=== PATIENT | male | born 1935 | race Two or more races ===

== ENCOUNTER 2021-05-09 16:30 | Inpatient (IN) | payer OTHER, MEDICARE ==
[2021-05-09 18:24] LABS: INR 1.36 (0.83-1.09)
[2021-05-09 18:27] LABS: ACTIVATED PTT 31.4 SECONDS (25.2-36.5)
[2021-05-09 18:39] LABS: CALCIUM 8.2 mg/dL (8.5-10.1)
[2021-05-09 18:40] LABS: ALBUMIN 2.8 g/dl (3.4-5.0); BLOOD UREA NITROGEN 19.3 mg/dL (7-18)
[2021-05-09 18:43] LABS: CREATININE 1.1 mg/dL (0.55-1.3)
[2021-05-09 18:44] LABS: BILIRUBIN,TOTAL 0.5 mg/dL (0.2-1)
[2021-05-09 18:45] LABS: TOT PROT 6.2 g/dl (6.4-8.2)
[2021-05-09 18:48] LABS: N-TERMINAL BNP 21731.2 pg/ml (5-450)
[2021-05-09 18:56] LABS: BASO % 0.9 % (0-2.0); EOS % 0.5 % (0-4.5); HEMATOCRIT 32.2 % (35.4-49); HEMOGLOBIN 10.3 GM/dL (11.7-16.9); LYMPH % 11.7 % (8-40); MEAN CELL VOLUME 62.2 fl (80-96); MEAN PLT VOLUME 10.2 fl (7.5-11.1); MONO % 5.6 % (3.8-10.2); NEUT % 81.3 % (42.8-82.8); PLATELET COUNT 128 10^3/uL (134-434); RBC 5.18 M/mm3 (4.00-5.60)
[2021-05-09] MEDS ORDERED: FUROSEMIDE 40 MG/4 ML INJECTABLE VIAL IVPUSH SCH (19:00)
[2021-05-09 19:01] LABS: MCH 19.9 pg (25.7-33.7)
[2021-05-09 20:16] LABS: RETICULOCYTES 0.83 % (0.5-1.5)
[2021-05-09 22:48] LABS: ANISOCYTOSIS 1+; MACROCYTOSIS 0; OVALOCYTE 1+; PLATELET ESTIMATE DECREASED; TARGET CELLS 1+
[2021-05-10 04:37] LABS: EPI CELLS 1 /uL (0-25.1); HYALINE CASTS 1 /uL (0-3.1); URINE APPEARANCE CLEAR; URINE BACTERIA 11 /uL (0-1359); URINE BILIRUBIN NEGATIVE (NEGATIVE); URINE COLOR YELLOW; URINE GLUCOSE (UA) 1+ (NEGATIVE); URINE KETONE NEGATIVE (NEGATIVE); URINE LEUK ESTERASE NEGATIVE (NEGATIVE); URINE NITRITE NEGATIVE (NEGATIVE); URINE PROTEIN 2+ (NEGATIVE); URINE RBC 3 /uL (0-23.9); URINE UROBILINOGEN 0.2 mg/dL (0.2-1.0); URINE WBC 4 /uL (0-25.8)
[2021-05-10] MEDS: INSULIN SLIDING SCALE (NOVOLOG) 1 VIAL SQ SCH ×4 (07:30→22:40)
[2021-05-10] MEDS: LEVOTHYROXINE NA 25 MCG TABLET (FP) PO SCH (07:30)
[2021-05-10 07:59] LABS: HEMATOCRIT 32.8 % (35.4-49); HEMOGLOBIN 10.7 GM/dL (11.7-16.9); MCH 20.5 pg (25.7-33.7); MCHC 32.7 g/dl (32.0-35.9); MEAN CELL VOLUME 62.6 fl (80-96); MEAN PLT VOLUME 11.2 fl (7.5-11.1); PLATELET COUNT 144 10^3/uL (134-434); RBC 5.23 M/mm3 (4.00-5.60); RDW 16.8 % (11.9-15.9); WHITE BLOOD COUNT 5.7 K/mm3 (4.0-10.0)
[2021-05-10] MEDS ORDERED: FUROSEMIDE 40 MG/4 ML INJECTABLE VIAL IVPUSH SCH (08:00)
[2021-05-10 08:06] LABS: BLOOD UREA NITROGEN 20.1 mg/dL (7-18); CALCIUM 8.9 mg/dL (8.5-10.1)
[2021-05-10 08:07] LABS: MAGNESIUM 1.8 mg/dL (1.8-2.4)
[2021-05-10 08:11] LABS: BILIRUBIN,TOTAL 0.8 mg/dL (0.2-1); TOT PROT 6.4 g/dl (6.4-8.2)
[2021-05-10] MEDS ORDERED: ASPIRIN 81 MG CHEWABLE TABLETS PO SCH (10:00)
[2021-05-10] MEDS: LOSARTAN POTASSIUM 25 MG TABLET PO SCH (10:30)
[2021-05-10] MEDS: PANTOPRAZOLE 40 MG TABLET PO SCH (10:40)
[2021-05-10 10:54] LABS: PHOSPHOROUS 4.4 mg/dL (2.5-4.9)
[2021-05-10] MEDS: TAMSULOSIN HCL 0.4 MG CAP PO SCH ×2 (11:30→22:34)
[2021-05-10] MEDS ORDERED: LEVOTHYROXINE NA 25 MCG TABLET (FP) ONE (11:40)
[2021-05-10] MEDS ORDERED: TAMSULOSIN HCL 0.4 MG CAP ONE (11:40)
[2021-05-10] MEDS ORDERED: PANTOPRAZOLE 40 MG TABLET ONE (11:40)
[2021-05-10] MEDS: ENOXAPARIN NA (PORCINE) 60 MG/0.6 ML DISP.SYRIN SQ SCH ×2 (12:01→22:34)
[2021-05-10] MEDS ORDERED: ENOXAPARIN NA (PORCINE) 60 MG/0.6 ML DISP.SYRIN SQ ONE (13:52)
[2021-05-10] MEDS ORDERED: FUROSEMIDE 40 MG/4 ML INJECTABLE VIAL ONE (14:47)
[2021-05-10] MEDS: FUROSEMIDE 40 MG/4 ML INJECTABLE VIAL IVPUSH SCH (15:00)
[2021-05-10] MEDS: ATORVASTATIN CA 10 MG TABLET (FP) PO SCH (22:34)
[2021-05-11] MEDS: INSULIN SLIDING SCALE (NOVOLOG) 1 VIAL SQ SCH ×4 (06:26→22:20)
[2021-05-11] MEDS: FUROSEMIDE 40 MG/4 ML INJECTABLE VIAL IVPUSH SCH ×2 (06:26→14:06)
[2021-05-11] MEDS: LEVOTHYROXINE NA 25 MCG TABLET (FP) PO SCH (06:26)
[2021-05-11 08:22] LABS: BASO % 0.5 % (0-2.0); EOS % 0.7 % (0-4.5); HEMATOCRIT 31.4 % (35.4-49); LYMPH % 15.5 % (8-40); MCHC 31.8 g/dl (32.0-35.9); MEAN PLT VOLUME 10.4 fl (7.5-11.1); MONO % 7.8 % (3.8-10.2); NEUT % 75.5 % (42.8-82.8); PLATELET COUNT 116 10^3/uL (134-434); RBC 5.06 M/mm3 (4.00-5.60); RDW 17.1 % (11.9-15.9); WHITE BLOOD COUNT 5.5 K/mm3 (4.0-10.0)
[2021-05-11 08:23] LABS: ALBUMIN 2.6 g/dl (3.4-5.0); BLOOD UREA NITROGEN 23.3 mg/dL (7-18); CALCIUM 8.5 mg/dL (8.5-10.1); MAGNESIUM 1.6 mg/dL (1.8-2.4)
[2021-05-11 08:24] LABS: MCH 19.7 pg (25.7-33.7)
[2021-05-11 08:25] LABS: BILIRUBIN,TOTAL 0.6 mg/dL (0.2-1); TOT PROT 5.6 g/dl (6.4-8.2)
[2021-05-11 08:26] LABS: CREATININE 1.1 mg/dL (0.55-1.3)
[2021-05-11] MEDS ORDERED: MAGNESIUM SULF 50% (8.12 MEQ/2 ML-1 GM VIAL) IVPB ONE (09:03)
[2021-05-11] MEDS: LOSARTAN POTASSIUM 25 MG TABLET PO SCH (10:46)
[2021-05-11] MEDS: MULTIVITAMINS (DAILY MVI) TABLET (FP) PO SCH (10:46)
[2021-05-11] MEDS: PANTOPRAZOLE 40 MG TABLET PO SCH (10:46)
[2021-05-11] MEDS: TAMSULOSIN HCL 0.4 MG CAP PO SCH ×2 (10:47→22:13)
[2021-05-11] MEDS: ENOXAPARIN NA (PORCINE) 60 MG/0.6 ML DISP.SYRIN SQ SCH ×2 (10:47→22:14)
[2021-05-11 11:05] LABS: PLATELET ESTIMATE SLT DECREASE
[2021-05-11] MEDS ORDERED: MAGNESIUM OXIDE 400 MG TABLET (FP) PO ONE (11:10)
[2021-05-11 13:53] VITALS: BMI 17.4
[2021-05-11] MEDS: SACUBITRIL/VALSARTAN 49 MG-51 MG TABLET PO SCH ×2 (14:10→22:13)
[2021-05-11] MEDS ORDERED: PT OWN MED DRAWER 7, Y5N ONE (20:02)
[2021-05-11] MEDS: CARVEDILOL 12.5 MG TABLET (FP) PO SCH (22:13)
[2021-05-11] MEDS: ATORVASTATIN CA 10 MG TABLET (FP) PO SCH (22:15)
[2021-05-12] MEDS ORDERED: DEXTROSE 50%-WATER 25 GM/50 ML DISP.SYRIN ONE (02:54)
[2021-05-12] MEDS: DEXTROSE 50%-WATER - 25 GM/50 ML VIAL IVPUSH ONE ×2 (03:15→03:21)
[2021-05-12] MEDS: LEVOTHYROXINE NA 25 MCG TABLET (FP) PO SCH (06:23)
[2021-05-12] MEDS: FUROSEMIDE 40 MG/4 ML INJECTABLE VIAL IVPUSH SCH ×2 (06:23→13:39)
[2021-05-12 07:24] LABS: BASO % 0.4 % (0-2.0); EOS % 1.1 % (0-4.5); HEMATOCRIT 34.4 % (35.4-49); HEMOGLOBIN 11.1 GM/dL (11.7-16.9); LYMPH % 10.4 % (8-40); MCH 20.2 pg (25.7-33.7); MCHC 32.2 g/dl (32.0-35.9); MEAN CELL VOLUME 62.7 fl (80-96); MEAN PLT VOLUME 10.8 fl (7.5-11.1); MONO % 5.4 % (3.8-10.2); NEUT % 82.7 % (42.8-82.8); PLATELET COUNT 130 10^3/uL (134-434); RBC 5.49 M/mm3 (4.00-5.60); RDW 16.5 % (11.9-15.9); WHITE BLOOD COUNT 6.9 K/mm3 (4.0-10.0)
[2021-05-12] MEDS: INSULIN SLIDING SCALE (NOVOLOG) 1 VIAL SQ SCH ×4 (07:29→17:02)
[2021-05-12 08:02] LABS: CALCIUM 8.3 mg/dL (8.5-10.1)
[2021-05-12 08:03] LABS: ALBUMIN 2.5 g/dl (3.4-5.0); BLOOD UREA NITROGEN 20.4 mg/dL (7-18)
[2021-05-12 08:05] LABS: MAGNESIUM 2.1 mg/dL (1.8-2.4)
[2021-05-12 08:06] LABS: CREATININE 1.3 mg/dL (0.55-1.3)
[2021-05-12 08:07] LABS: BILIRUBIN,TOTAL 0.7 mg/dL (0.2-1); TOT PROT 5.5 g/dl (6.4-8.2)
[2021-05-12] MEDS ORDERED: PT OWN MED DRAWER 7, Y5N ONE ×2 (09:03→20:37)
[2021-05-12] MEDS: SACUBITRIL/VALSARTAN 49 MG-51 MG TABLET PO SCH ×2 (09:21→22:02)
[2021-05-12] MEDS: PANTOPRAZOLE 40 MG TABLET PO SCH (09:21)
[2021-05-12] MEDS: TAMSULOSIN HCL 0.4 MG CAP PO SCH ×2 (09:21→22:13)
[2021-05-12] MEDS: CARVEDILOL 12.5 MG TABLET (FP) PO SCH ×2 (09:21→22:04)
[2021-05-12] MEDS: MULTIVITAMINS (DAILY MVI) TABLET (FP) PO SCH (09:21)
[2021-05-12 09:37] LABS: PLATELET ESTIMATE DECREASED
[2021-05-12] MEDS: ENOXAPARIN NA (PORCINE) 60 MG/0.6 ML DISP.SYRIN SQ SCH ×2 (10:00→22:18)
[2021-05-12] MEDS: POTASSIUM CHLORIDE TABS 20 MEQ TABLET.ER (FP) PO SCH ×2 (10:34→14:44)
[2021-05-12] MEDS ORDERED: AMOX TR/POT CLAV 875MG/125MG TABLETS (FP) PO SCH (17:30)
[2021-05-12] MEDS: AMOX TR/POT CLAV 500MG/125MG TABLETS (FP) PO SCH (18:13)
[2021-05-12] MEDS: ATORVASTATIN CA 10 MG TABLET (FP) PO SCH (22:05)
[2021-05-13] MEDS: INSULIN SLIDING SCALE (NOVOLOG) 1 VIAL SQ SCH ×4 (06:25→22:00)
[2021-05-13] MEDS: LEVOTHYROXINE NA 25 MCG TABLET (FP) PO SCH (06:26)
[2021-05-13] MEDS: FUROSEMIDE 40 MG/4 ML INJECTABLE VIAL IVPUSH SCH (06:26)
[2021-05-13 07:21] LABS: BASO % 1.3 % (0-2.0); EOS % 1.9 % (0-4.5); HEMATOCRIT 34.5 % (35.4-49); LYMPH % 20.3 % (8-40); MCHC 31.8 g/dl (32.0-35.9); MEAN CELL VOLUME 62.3 fl (80-96); MEAN PLT VOLUME 10.4 fl (7.5-11.1); MONO % 6.6 % (3.8-10.2); NEUT % 69.9 % (42.8-82.8); PLATELET COUNT 107 10^3/uL (134-434); RBC 5.54 M/mm3 (4.00-5.60); RDW 16.7 % (11.9-15.9); WHITE BLOOD COUNT 6.7 K/mm3 (4.0-10.0)
[2021-05-13 07:22] LABS: MCH 19.8 pg (25.7-33.7)
[2021-05-13 08:04] LABS: ALBUMIN 2.3 g/dl (3.4-5.0); CALCIUM 8.4 mg/dL (8.5-10.1); MAGNESIUM 1.8 mg/dL (1.8-2.4)
[2021-05-13 08:07] LABS: CREATININE 1.5 mg/dL (0.55-1.3)
[2021-05-13 08:09] LABS: BILIRUBIN,TOTAL 0.7 mg/dL (0.2-1); TOT PROT 5.2 g/dl (6.4-8.2)
[2021-05-13] MEDS ORDERED: PT OWN MED DRAWER 7, Y5N ONE ×2 (08:38→13:14)
[2021-05-13] MEDS: AMOX TR/POT CLAV 500MG/125MG TABLETS (FP) PO SCH ×2 (09:30→17:34)
[2021-05-13 09:50] LABS: ANISOCYTOSIS 1+; MACROCYTOSIS 0; OVALOCYTE 1+; PLATELET ESTIMATE DECREASED; TARGET CELLS 2+; TEAR DROP CELLS 1+
[2021-05-13] MEDS: ENOXAPARIN NA (PORCINE) 60 MG/0.6 ML DISP.SYRIN SQ SCH ×2 (10:04→10:08)
[2021-05-13] MEDS: SACUBITRIL/VALSARTAN 49 MG-51 MG TABLET PO SCH ×2 (10:09→22:00)
[2021-05-13] MEDS: TAMSULOSIN HCL 0.4 MG CAP PO SCH ×2 (10:09→21:59)
[2021-05-13] MEDS: CARVEDILOL 12.5 MG TABLET (FP) PO SCH ×2 (10:10→22:00)
[2021-05-13] MEDS: PANTOPRAZOLE 40 MG TABLET PO SCH (10:10)
[2021-05-13] MEDS: MULTIVITAMINS (DAILY MVI) TABLET (FP) PO SCH (10:10)
[2021-05-13] MEDS ORDERED: FUROSEMIDE 40 MG TABLET (FP) PO SCH (14:00)
[2021-05-13] MEDS: ATORVASTATIN CA 10 MG TABLET (FP) PO SCH ×2 (22:00→22:07)
[2021-05-14] MEDS: INSULIN SLIDING SCALE (NOVOLOG) 1 VIAL SQ SCH ×4 (06:15→21:24)
[2021-05-14] MEDS: LEVOTHYROXINE NA 25 MCG TABLET (FP) PO SCH (06:16)
[2021-05-14 08:42] LABS: INR 1.19 (0.83-1.09)
[2021-05-14 08:48] LABS: CALCIUM 7.8 mg/dL (8.5-10.1); TOT PROT 5.2 g/dl (6.4-8.2)
[2021-05-14 08:49] LABS: ALBUMIN 2.2 g/dl (3.4-5.0); BILIRUBIN,TOTAL 0.8 mg/dL (0.2-1); BLOOD UREA NITROGEN 22.7 mg/dL (7-18); MAGNESIUM 1.6 mg/dL (1.8-2.4)
[2021-05-14 08:52] LABS: CREATININE 1.3 mg/dL (0.55-1.3)
[2021-05-14 08:57] LABS: MCH 20.2 pg (25.7-33.7); MCHC 32.3 g/dl (32.0-35.9); MEAN CELL VOLUME 62.7 fl (80-96); MEAN PLT VOLUME 10.8 fl (7.5-11.1); NEUT % 66.3 % (42.8-82.8); PLATELET COUNT 108 10^3/uL (134-434); RBC 5.43 M/mm3 (4.00-5.60); RDW 16.5 % (11.9-15.9); WHITE BLOOD COUNT 6.2 K/mm3 (4.0-10.0)
[2021-05-14 08:58] LABS: EOS % 2.6 % (0-4.5); LYMPH % 22.8 % (8-40); MONO % 7.3 % (3.8-10.2)
[2021-05-14] MEDS ORDERED: POTASSIUM CHLORIDE TABS 20 MEQ TABLET.ER (FP) PO ONE (08:59)
[2021-05-14] MEDS ORDERED: MAGNESIUM OXIDE 400 MG TABLET (FP) PO ONE (08:59)
[2021-05-14] MEDS ORDERED: PT OWN MED DRAWER 7, Y5N ONE ×2 (09:41→20:24)
[2021-05-14] MEDS: TAMSULOSIN HCL 0.4 MG CAP PO SCH ×2 (10:01→21:02)
[2021-05-14] MEDS: AMOX TR/POT CLAV 500MG/125MG TABLETS (FP) PO SCH ×2 (10:02→17:45)
[2021-05-14] MEDS: SACUBITRIL/VALSARTAN 49 MG-51 MG TABLET PO SCH ×2 (10:02→21:02)
[2021-05-14] MEDS: MULTIVITAMINS (DAILY MVI) TABLET (FP) PO SCH (10:02)
[2021-05-14] MEDS: CARVEDILOL 12.5 MG TABLET (FP) PO SCH ×2 (10:02→21:02)
[2021-05-14] MEDS: PANTOPRAZOLE 40 MG TABLET PO SCH (10:02)
[2021-05-14 14:42] VITALS: BP 132/68; PULSE 67; TEMP 97.6
[2021-05-14] MEDS: ATORVASTATIN CA 10 MG TABLET (FP) PO SCH (21:02)
[2021-05-14] MEDS ORDERED: INSULIN (NOVOLOG) ASPART 100 UNITS/ML 10ML VIAL ONE (21:21)
== END 2021-05-14 22:50 | disposition short-term general hospital (02) | DRG 291 ==
LOC: JER 16:30 → JERBED 19:17 → J4W 05-10 22:13
PROVIDERS: ADMIT Internal Medicine; ATTEND Nurse Practitioner Acute Care
DX: I11.0 Hypertensive heart disease with heart failure (principal); I50.21 Acute systolic (congestive) heart failure; R64 Cachexia; Z68.1 Body mass index [BMI] 19.9 or less, adult; E11.9 Type 2 diabetes mellitus without complications; I48.91 Unspecified atrial fibrillation; E78.5 Hyperlipidemia, unspecified; Z79.84 Long term (current) use of oral hypoglycemic drugs; I25.10 Atherosclerotic heart disease of native coronary artery without angina pectoris; Z95.1 Presence of aortocoronary bypass graft; E03.9 Hypothyroidism, unspecified; D64.9 Anemia, unspecified; N40.0 Benign prostatic hyperplasia without lower urinary tract symptoms
CPT/HCPCS: 36415; 71046-TC-FY; 80053; 80061; 81003; 82550; 82553; 82728; 82962; 83036; 83540; 83550; 83735; 83880; 84100; 84439; 84443; 84484; 85025; 85027; 85045; 85610; 85730; 87086; 87186; 93005; 93010; 93306-TC; 97116-GP; 97161-GP; 99285-25; C9803; U0003; U0005

== ENCOUNTER 2021-07-06 15:50 | Inpatient (IN) | payer OTHER, MEDICARE ==
[2021-07-06] MEDS ORDERED: METOCLOPRAMIDE HCL INJECTION 10 MG/2 ML VIAL IVPB ONE (17:02)
[2021-07-06] MEDS ORDERED: METOCLOPRAMIDE HCL INJECTION 10 MG/2 ML VIAL ONE (17:30)
[2021-07-06 17:51] LABS: BASO % 0.6 % (0-2.0); EOS % 0.5 % (0-4.5); HEMATOCRIT 29.6 % (35.4-49); HEMOGLOBIN 9.5 GM/dL (11.7-16.9); LYMPH % 28.2 % (8-40); MCHC 32.2 g/dl (32.0-35.9); MEAN CELL VOLUME 61.1 fl (80-96); MEAN PLT VOLUME 9.5 fl (7.5-11.1); MONO % 4.7 % (3.8-10.2); PLATELET COUNT 148 10^3/uL (134-434); RBC 4.86 M/mm3 (4.00-5.60); RDW 16.6 % (11.9-15.9); WHITE BLOOD COUNT 4.3 K/mm3 (4.0-10.0)
[2021-07-06 17:53] LABS: MCH 19.6 pg (25.7-33.7)
[2021-07-06 17:57] LABS: INR 1.36 (0.83-1.09); PROTHROMBIN TIME (PATIENT) 15.3 SEC (9.7-13.0)
[2021-07-06 18:00] LABS: ACTIVATED PTT 32.3 SECONDS (25.2-36.5)
[2021-07-06 18:06] LABS: CHLORIDE 104 mmol/L (98-107); SODIUM 141 mmol/L (136-145)
[2021-07-06 18:08] LABS: CALCIUM 8.6 mg/dL (8.5-10.1)
[2021-07-06 18:09] LABS: ALBUMIN 2.7 g/dl (3.4-5.0); ANION GAP 7 MMOL/L (8-16); BLOOD UREA NITROGEN 10.9 mg/dL (7-18); CO2 31 mmol/L (21-32); GLUCOSE,RANDOM 140 mg/dL (74-106)
[2021-07-06 18:12] LABS: CHOLESTEROL 133 mg/dL (50-200); CREATININE 1.1 mg/dL (0.55-1.3); SGOT/AST 39 U/L (15-37); SGPT/ALT 41 U/L (13-61); TRIGLYCERIDES 78 mg/dL (0-150)
[2021-07-06 18:13] LABS: BILIRUBIN,TOTAL 0.7 mg/dL (0.2-1); LDL CHOLESTEROL (ONLY SJRH) 55 mg/dL (5-100); TOT PROT 6.2 g/dl (6.4-8.2)
[2021-07-06 18:14] LABS: ALK PHOS 86 U/L (45-117); HDL CHOLESTEROL 63 mg/dL (40-60)
[2021-07-06 18:49] LABS: ANISOCYTOSIS 3+; MACROCYTOSIS 0; PLATELET ESTIMATE NORMAL
[2021-07-06] MEDS ORDERED: ASPIRIN 81 MG CHEWABLE TABLETS PO ONE (20:34)
[2021-07-06] MEDS ORDERED: ASPIRIN 325 MG ENTERIC COATED TABLET (FP) ONE (20:47)
[2021-07-06] MEDS ORDERED: MECLIZINE HCL 12.5 MG TABLET PO PRN (21:32)
[2021-07-07] MEDS ORDERED: APIXABAN 2.5 MG TABLET ONE ×3 (02:11→21:25)
[2021-07-07] MEDS: INSULIN SLIDING SCALE (NOVOLOG) 1 VIAL SQ SCH ×5 (03:10→22:37)
[2021-07-07] MEDS: SACUBITRIL/VALSARTAN 49 MG-51 MG TABLET PO SCH ×3 (03:11→22:37)
[2021-07-07] MEDS: APIXABAN 2.5 MG TABLET PO SCH ×3 (03:11→22:37)
[2021-07-07 07:48] LABS: BASO % 0.7 % (0-2.0); EOS % 0.6 % (0-4.5); HEMATOCRIT 30.1 % (35.4-49); HEMOGLOBIN 9.8 GM/dL (11.7-16.9); LYMPH % 34.2 % (8-40); MCHC 32.6 g/dl (32.0-35.9); MEAN CELL VOLUME 60.9 fl (80-96); MEAN PLT VOLUME 9.6 fl (7.5-11.1); MONO % 6.6 % (3.8-10.2); NEUT % 57.9 % (42.8-82.8); PLATELET COUNT 139 10^3/uL (134-434); RBC 4.94 M/mm3 (4.00-5.60); RDW 16.7 % (11.9-15.9); WHITE BLOOD COUNT 4.5 K/mm3 (4.0-10.0)
[2021-07-07 07:52] LABS: MCH 19.8 pg (25.7-33.7)
[2021-07-07 08:09] LABS: CHLORIDE 102 mmol/L (98-107); SODIUM 141 mmol/L (136-145)
[2021-07-07 08:16] LABS: CALCIUM 8.6 mg/dL (8.5-10.1); CO2 33 mmol/L (21-32)
[2021-07-07 08:17] LABS: BLOOD UREA NITROGEN 10.4 mg/dL (7-18); SGPT/ALT 40 U/L (13-61)
[2021-07-07 08:18] LABS: ALBUMIN 2.7 g/dl (3.4-5.0); GLUCOSE,RANDOM 104 mg/dL (74-106); SGOT/AST 37 U/L (15-37)
[2021-07-07 08:19] LABS: TOT PROT 5.8 g/dl (6.4-8.2)
[2021-07-07 08:21] LABS: CHOLESTEROL 141 mg/dL (50-200); PHOSPHOROUS 3.3 mg/dL (2.5-4.9); TRIGLYCERIDES 79 mg/dL (0-150)
[2021-07-07 08:22] LABS: BILIRUBIN,TOTAL 0.9 mg/dL (0.2-1); LDL CHOLESTEROL (ONLY SJRH) 61 mg/dL (5-100)
[2021-07-07 08:23] LABS: HDL CHOLESTEROL 60 mg/dL (40-60)
[2021-07-07 08:25] LABS: ALK PHOS 83 U/L (45-117)
[2021-07-07 08:31] LABS: MAGNESIUM 2.2 mg/dL (1.8-2.4)
[2021-07-07 08:38] LABS: ANION GAP 6 MMOL/L (8-16)
[2021-07-07 09:21] LABS: PLATELET ESTIMATE DECREASED
[2021-07-07] MEDS ORDERED: PANTOPRAZOLE 40 MG TABLET ONE (10:11)
[2021-07-07] MEDS ORDERED: FUROSEMIDE 40 MG TABLET (FP) ONE (10:11)
[2021-07-07] MEDS ORDERED: LEVOTHYROXINE NA 25 MCG TABLET (FP) ONE (10:12)
[2021-07-07] MEDS: CARVEDILOL 6.25 MG TABLET (FP) PO SCH ×2 (10:45→22:37)
[2021-07-07] MEDS: FUROSEMIDE 40 MG TABLET (FP) PO SCH (10:45)
[2021-07-07] MEDS: LEVOTHYROXINE NA 25 MCG TABLET (FP) PO SCH (10:45)
[2021-07-07] MEDS: PANTOPRAZOLE 40 MG TABLET PO SCH (10:45)
[2021-07-07] MEDS ORDERED: POTASSIUM CHLORIDE TABS 20 MEQ TABLET.ER (FP) PO ONE ×4 (11:14→22:00)
[2021-07-07 20:44] LABS: URINE APPEARANCE CLEAR; URINE BILIRUBIN NEGATIVE (NEGATIVE); URINE COLOR YELLOW; URINE GLUCOSE (UA) NEGATIVE (NEGATIVE); URINE KETONE NEGATIVE (NEGATIVE); URINE LEUK ESTERASE NEGATIVE (NEGATIVE); URINE NITRITE NEGATIVE (NEGATIVE); URINE PROTEIN NEGATIVE (NEGATIVE); URINE UROBILINOGEN 0.2 mg/dL (0.2-1.0)
[2021-07-07] MEDS ORDERED: CARVEDILOL 3.125 MG TABLET (FP) ONE (21:25)
[2021-07-07] MEDS ORDERED: TAMSULOSIN HCL 0.4 MG CAP ONE (21:26)
[2021-07-07] MEDS ORDERED: ATORVASTATIN CA 40 MG TABLET (FP) ONE (21:26)
[2021-07-07] MEDS ORDERED: ATORVASTATIN CA 80 MG TABLET (FP) PO SCH (22:00)
[2021-07-07] MEDS ORDERED: ATORVASTATIN CA 40 MG TABLET (FP) PO SCH (22:00)
[2021-07-07] MEDS ORDERED: ATORVASTATIN CA 10 MG TABLET (FP) PO SCH (22:00)
[2021-07-07] MEDS: TAMSULOSIN HCL 0.4 MG CAP PO SCH (22:37)
[2021-07-08 01:05] VITALS: BMI 15.0
[2021-07-08] MEDS: INSULIN SLIDING SCALE (NOVOLOG) 1 VIAL SQ SCH ×2 (07:10→11:59)
[2021-07-08] MEDS: LEVOTHYROXINE NA 25 MCG TABLET (FP) PO SCH (07:13)
[2021-07-08] MEDS ORDERED: MULTIVITAMINS (DAILY MVI) TABLET (FP) PO SCH (10:00)
[2021-07-08] MEDS ORDERED: ASPIRIN 81 MG CHEWABLE TABLETS PO SCH (10:00)
[2021-07-08] MEDS: FUROSEMIDE 40 MG TABLET (FP) PO SCH (10:10)
[2021-07-08] MEDS: APIXABAN 2.5 MG TABLET PO SCH (10:10)
[2021-07-08] MEDS: CARVEDILOL 6.25 MG TABLET (FP) PO SCH (10:10)
[2021-07-08] MEDS: PANTOPRAZOLE 40 MG TABLET PO SCH (10:10)
[2021-07-08] MEDS: TAMSULOSIN HCL 0.4 MG CAP PO SCH (10:10)
[2021-07-08] MEDS: SACUBITRIL/VALSARTAN 49 MG-51 MG TABLET PO SCH (10:11)
[2021-07-08 15:00] VITALS: BP 138/58; PULSE 55; TEMP 97.5
== END 2021-07-08 17:13 | disposition home or self-care (01) | DRG 65 ==
LOC: JER 15:50 → INTOOBSV 20:35 → UNDOADMOB 20:35 → JERBED 20:35 → OBSVTOIN 07-07 16:44 → J4S 07-07 23:55
PROVIDERS: ATTEND Nurse Practitioner Acute Care
DX: I63.9 Cerebral infarction, unspecified (principal); I50.22 Chronic systolic (congestive) heart failure; I11.0 Hypertensive heart disease with heart failure; E78.5 Hyperlipidemia, unspecified; E11.9 Type 2 diabetes mellitus without complications; I25.10 Atherosclerotic heart disease of native coronary artery without angina pectoris; E03.9 Hypothyroidism, unspecified; N40.0 Benign prostatic hyperplasia without lower urinary tract symptoms; I48.91 Unspecified atrial fibrillation; E11.42 Type 2 diabetes mellitus with diabetic polyneuropathy; I34.0 Nonrheumatic mitral (valve) insufficiency; E87.6 Hypokalemia; H55.00 Unspecified nystagmus; R27.0 Ataxia, unspecified; D50.9 Iron deficiency anemia, unspecified; Z95.1 Presence of aortocoronary bypass graft
CPT/HCPCS: 36415; 70450-TC; 70551-TC; 71045-TC-FY; 80053; 80061; 81003; 82272; 82550; 82728; 82962; 83036; 83540; 83550; 83735; 84100; 84484; 85025; 85610; 85730; 86850; 86900; 86901; 93005; 93010; 93880-TC; 97116-GP; 97161-GP; 99285-25; C9803; G0378; U0003; U0005

== ENCOUNTER 2021-08-26 15:11 | Inpatient (IN) | payer OTHER, MEDICARE ==
[2021-08-26 16:59] LABS: BASO % 0.6 % (0-2.0); HEMATOCRIT 27.2 % (35.4-49); HEMOGLOBIN 8.7 GM/dL (11.7-16.9); LYMPH % 29.3 % (8-40); MCH 20.2 pg (25.7-33.7); MCHC 31.9 g/dl (32.0-35.9); MEAN CELL VOLUME 63.4 fl (80-96); MEAN PLT VOLUME 10.2 fl (7.5-11.1); MONO % 5.9 % (3.8-10.2); NEUT % 63.2 % (42.8-82.8); PLATELET COUNT 161 10^3/uL (134-434); RDW 16.7 % (11.9-15.9); WHITE BLOOD COUNT 4.4 K/mm3 (4.0-10.0)
[2021-08-26 17:15] LABS: INR 1.49 (0.83-1.09); PROTHROMBIN TIME (PATIENT) 17.2 SEC (9.7-13.0)
[2021-08-26 17:17] LABS: ACTIVATED PTT 33.9 SECONDS (25.2-36.5)
[2021-08-26] MEDS ORDERED: SODIUM CHLORIDE 0.9% 500 ML INFUS.BAG IV ONE (17:27)
[2021-08-26 17:32] LABS: BLOOD UREA NITROGEN 11.9 mg/dL (7-18)
[2021-08-26 17:33] LABS: ALBUMIN 2.6 g/dl (3.4-5.0)
[2021-08-26 17:36] LABS: CREATININE 1.3 mg/dL (0.55-1.3)
[2021-08-26 17:37] LABS: BILIRUBIN,TOTAL 0.6 mg/dL (0.2-1); TOT PROT 5.9 g/dl (6.4-8.2)
[2021-08-26 18:18] LABS: MAGNESIUM 1.5 mg/dL (1.8-2.4)
[2021-08-26 18:22] LABS: PHOSPHOROUS 3.8 mg/dL (2.5-4.9)
[2021-08-26 18:27] LABS: N-TERMINAL BNP 4835.5 pg/ml (5-450)
[2021-08-26 19:22] LABS: ANISOCYTOSIS 2+; MACROCYTOSIS 2+; OVALOCYTE 1+; PLATELET ESTIMATE DECREASED; TEAR DROP CELLS 1+
[2021-08-26] MEDS ORDERED: MAGNESIUM OXIDE 400 MG TABLET (FP) PO ONE (19:48)
[2021-08-26] MEDS ORDERED: MAGNESIUM OXIDE 400 MG TABLET (FP) ONE (20:39)
[2021-08-26] MEDS: SODIUM CHLORIDE 1,000 ML IV SCH (20:50)
[2021-08-26] MEDS ORDERED: INSULIN (NOVOLOG) ASPART 100 UNITS/ML 10ML VIAL SQ ONE (20:50)
[2021-08-26 21:36] LABS: RETICULOCYTES 0.75 % (0.5-1.5)
[2021-08-26] MEDS ORDERED: SOTROVIMAB 500 MG in SODIUM CHLORIDE 100 ML IVPB ONE (22:00)
[2021-08-26] MEDS ORDERED: ATORVASTATIN CA 40 MG TABLET (FP) ONE (22:39)
[2021-08-26] MEDS ORDERED: TAMSULOSIN HCL 0.4 MG CAP ONE (22:39)
[2021-08-26] MEDS ORDERED: APIXABAN 2.5 MG TABLET ONE (22:39)
[2021-08-26] MEDS: INSULIN SLIDING SCALE (NOVOLOG) 1 VIAL SQ SCH (22:48)
[2021-08-26] MEDS: APIXABAN 2.5 MG TABLET PO SCH (22:48)
[2021-08-26] MEDS: SACUBITRIL/VALSARTAN 49 MG-51 MG TABLET PO SCH (22:48)
[2021-08-26] MEDS: ATORVASTATIN CA 40 MG TABLET (FP) PO SCH (22:48)
[2021-08-26] MEDS: TAMSULOSIN HCL 0.4 MG CAP PO SCH (22:48)
[2021-08-27 01:28] LABS: EPI CELLS 9 /uL (0-25.1); HYALINE CASTS 7 /uL (0-3.1); PH,URINE 6.5 (5.0-8.0); URINE APPEARANCE CLEAR; URINE BACTERIA 2 /uL (0-1359); URINE BILIRUBIN NEGATIVE (NEGATIVE); URINE COLOR YELLOW; URINE GLUCOSE (UA) NEGATIVE (NEGATIVE); URINE KETONE NEGATIVE (NEGATIVE); URINE LEUK ESTERASE NEGATIVE (NEGATIVE); URINE NITRITE NEGATIVE (NEGATIVE); URINE PROTEIN 1+ (NEGATIVE); URINE RBC 21 /uL (0-23.9); URINE UROBILINOGEN 0.2 mg/dL (0.2-1.0); URINE WBC 5 /uL (0-25.8)
[2021-08-27] MEDS: INSULIN SLIDING SCALE (NOVOLOG) 1 VIAL SQ SCH ×4 (06:49→22:07)
[2021-08-27] MEDS: LEVOTHYROXINE NA 50 MCG TABLET (FP) PO SCH (06:49)
[2021-08-27 07:03] LABS: HEMATOCRIT 23.8 % (35.4-49); HEMOGLOBIN 7.5 GM/dL (11.7-16.9); MCH 20.1 pg (25.7-33.7); MCHC 31.5 g/dl (32.0-35.9); MEAN CELL VOLUME 63.7 fl (80-96); MEAN PLT VOLUME 10.4 fl (7.5-11.1); PLATELET COUNT 131 10^3/uL (134-434); RBC 3.73 M/mm3 (4.00-5.60); RDW 16.6 % (11.9-15.9); WHITE BLOOD COUNT 4.3 K/mm3 (4.0-10.0)
[2021-08-27 07:17] LABS: BLOOD UREA NITROGEN 10.9 mg/dL (7-18); CALCIUM 7.3 mg/dL (8.5-10.1)
[2021-08-27 07:18] LABS: ALBUMIN 2.2 g/dl (3.4-5.0); MAGNESIUM 1.4 mg/dL (1.8-2.4)
[2021-08-27 07:21] LABS: PHOSPHOROUS 3.3 mg/dL (2.5-4.9)
[2021-08-27 07:22] LABS: BILIRUBIN,TOTAL 0.8 mg/dL (0.2-1); TOT PROT 4.9 g/dl (6.4-8.2)
[2021-08-27] MEDS ORDERED: POTASSIUM CHLORIDE TABS 20 MEQ TABLET.ER (FP) PO ONE (08:51)
[2021-08-27] MEDS: SODIUM CHLORIDE 1,000 ML IV SCH (09:00)
[2021-08-27] MEDS: CARVEDILOL 6.25 MG TABLET (FP) PO SCH ×2 (09:05→22:06)
[2021-08-27] MEDS: PANTOPRAZOLE 40 MG TABLET PO SCH (09:05)
[2021-08-27] MEDS: APIXABAN 2.5 MG TABLET PO SCH ×2 (09:05→22:06)
[2021-08-27] MEDS: ASPIRIN 81 MG CHEWABLE TABLETS PO SCH (09:05)
[2021-08-27] MEDS: TAMSULOSIN HCL 0.4 MG CAP PO SCH ×2 (09:05→22:06)
[2021-08-27] MEDS: SACUBITRIL/VALSARTAN 49 MG-51 MG TABLET PO SCH ×2 (11:11→22:06)
[2021-08-27] MEDS ORDERED: MAGNESIUM SULF 50% (8.12 MEQ/2 ML-1 GM VIAL) IVPB ONE (15:14)
[2021-08-27] MEDS ORDERED: ONDANSETRON 4 MG/2 ML VIAL IVPUSH ONE (20:58)
[2021-08-27] MEDS: ATORVASTATIN CA 40 MG TABLET (FP) PO SCH (22:06)
[2021-08-28] MEDS ORDERED: TRIMETHOBENZAMIDE HCL 200MG/2ML INJ IM PRN (03:00)
[2021-08-28] MEDS: LEVOTHYROXINE NA 50 MCG TABLET (FP) PO SCH (06:08)
[2021-08-28] MEDS: INSULIN SLIDING SCALE (NOVOLOG) 1 VIAL SQ SCH ×4 (07:02→22:13)
[2021-08-28 07:22] LABS: BASO % 0.4 % (0-2.0); EOS % 0.6 % (0-4.5); HEMOGLOBIN 8.7 GM/dL (11.7-16.9); LYMPH % 23.1 % (8-40); MCH 20.3 pg (25.7-33.7); MEAN CELL VOLUME 63.3 fl (80-96); MEAN PLT VOLUME 10.9 fl (7.5-11.1); MONO % 5.6 % (3.8-10.2); NEUT % 70.3 % (42.8-82.8); PLATELET COUNT 169 10^3/uL (134-434); RBC 4.27 M/mm3 (4.00-5.60); RDW 16.3 % (11.9-15.9); WHITE BLOOD COUNT 4.2 K/mm3 (4.0-10.0)
[2021-08-28 07:32] LABS: ALBUMIN 2.3 g/dl (3.4-5.0); CALCIUM 7.5 mg/dL (8.5-10.1); MAGNESIUM 1.7 mg/dL (1.8-2.4)
[2021-08-28 07:36] LABS: CREATININE 1.1 mg/dL (0.55-1.3)
[2021-08-28 07:37] LABS: BILIRUBIN,TOTAL 0.6 mg/dL (0.2-1); TOT PROT 5.2 g/dl (6.4-8.2)
[2021-08-28] MEDS: SACUBITRIL/VALSARTAN 49 MG-51 MG TABLET PO SCH ×2 (09:26→22:15)
[2021-08-28] MEDS: TAMSULOSIN HCL 0.4 MG CAP PO SCH ×2 (09:26→22:15)
[2021-08-28] MEDS: ASPIRIN 81 MG CHEWABLE TABLETS PO SCH (09:26)
[2021-08-28] MEDS: CARVEDILOL 6.25 MG TABLET (FP) PO SCH ×2 (09:27→22:14)
[2021-08-28] MEDS: APIXABAN 2.5 MG TABLET PO SCH ×2 (09:27→22:14)
[2021-08-28] MEDS: PANTOPRAZOLE 40 MG TABLET PO SCH (09:27)
[2021-08-28] MEDS: amLODIPine BESYLATE 5 MG TABLET (FP) PO SCH (09:27)
[2021-08-28 12:56] VITALS: BMI 18.7
[2021-08-28] MEDS: AMINO ACIDS/PROTEIN HYDROLYS 30 ML LIQUID.PKT PO SCH (17:55)
[2021-08-28] MEDS: ATORVASTATIN CA 40 MG TABLET (FP) PO SCH (22:14)
[2021-08-28] MEDS: MAGNESIUM OXIDE 400 MG TABLET (FP) PO SCH (22:14)
[2021-08-29] MEDS: INSULIN SLIDING SCALE (NOVOLOG) 1 VIAL SQ SCH ×4 (06:27→21:49)
[2021-08-29] MEDS: LEVOTHYROXINE NA 50 MCG TABLET (FP) PO SCH (06:28)
[2021-08-29 07:25] LABS: EOS % 0.9 % (0-4.5); HEMATOCRIT 31.1 % (35.4-49); HEMOGLOBIN 9.7 GM/dL (11.7-16.9); LYMPH % 21.5 % (8-40); MCHC 31.1 g/dl (32.0-35.9); MEAN CELL VOLUME 63.7 fl (80-96); MEAN PLT VOLUME 10.1 fl (7.5-11.1); MONO % 2.8 % (3.8-10.2); NEUT % 73.8 % (42.8-82.8); PLATELET COUNT 164 10^3/uL (134-434); RBC 4.88 M/mm3 (4.00-5.60); RDW 16.4 % (11.9-15.9); WHITE BLOOD COUNT 5.2 K/mm3 (4.0-10.0)
[2021-08-29 07:31] LABS: MCH 19.8 pg (25.7-33.7)
[2021-08-29 07:50] LABS: ALBUMIN 2.6 g/dl (3.4-5.0); BLOOD UREA NITROGEN 14.4 mg/dL (7-18); CALCIUM 8.5 mg/dL (8.5-10.1); MAGNESIUM 1.6 mg/dL (1.8-2.4)
[2021-08-29 07:55] LABS: BILIRUBIN,TOTAL 0.6 mg/dL (0.2-1); TOT PROT 5.7 g/dl (6.4-8.2)
[2021-08-29] MEDS ORDERED: LORazepam 2 MG/ML SDV VIAL IVPUSH PRN (10:51)
[2021-08-29] MEDS: AMINO ACIDS/PROTEIN HYDROLYS 30 ML LIQUID.PKT PO SCH ×2 (11:21→17:37)
[2021-08-29] MEDS: APIXABAN 2.5 MG TABLET PO SCH ×2 (11:22→21:25)
[2021-08-29] MEDS: MAGNESIUM OXIDE 400 MG TABLET (FP) PO SCH ×2 (11:22→21:25)
[2021-08-29] MEDS: SACUBITRIL/VALSARTAN 49 MG-51 MG TABLET PO SCH (11:22)
[2021-08-29] MEDS: MULTIVITAMINS THER W-MINERALS COMBO TABLET (FP) PO SCH (11:22)
[2021-08-29] MEDS: CARVEDILOL 6.25 MG TABLET (FP) PO SCH ×2 (11:22→21:25)
[2021-08-29] MEDS: ASPIRIN 81 MG CHEWABLE TABLETS PO SCH (11:22)
[2021-08-29] MEDS: amLODIPine BESYLATE 5 MG TABLET (FP) PO SCH (11:22)
[2021-08-29] MEDS: PANTOPRAZOLE 40 MG TABLET PO SCH (11:22)
[2021-08-29] MEDS: TAMSULOSIN HCL 0.4 MG CAP PO SCH ×2 (11:22→21:26)
[2021-08-29] MEDS ORDERED: MINERAL OIL ENEMA 133 ML ENEMA RC ONE (14:00)
[2021-08-29] MEDS ORDERED: amLODIPine BESYLATE 5 MG TABLET (FP) PO ONE (15:00)
[2021-08-29] MEDS ORDERED: BISACODYL 10 MG SUPP.RECT PR ONE (15:00)
[2021-08-29] MEDS: DOCUSATE SODIUM 100 MG CAPSULE (FP) PO SCH ×2 (15:40→21:25)
[2021-08-29] MEDS: ATORVASTATIN CA 40 MG TABLET (FP) PO SCH (21:26)
[2021-08-30] MEDS: LEVOTHYROXINE NA 50 MCG TABLET (FP) PO SCH (06:34)
[2021-08-30] MEDS: DOCUSATE SODIUM 100 MG CAPSULE (FP) PO SCH ×2 (06:36→13:04)
[2021-08-30] MEDS: INSULIN SLIDING SCALE (NOVOLOG) 1 VIAL SQ SCH ×2 (06:36→11:52)
[2021-08-30] MEDS: AMINO ACIDS/PROTEIN HYDROLYS 30 ML LIQUID.PKT PO SCH (08:45)
[2021-08-30] MEDS: MAGNESIUM OXIDE 400 MG TABLET (FP) PO SCH (09:00)
[2021-08-30] MEDS: PANTOPRAZOLE 40 MG TABLET PO SCH (09:00)
[2021-08-30] MEDS: TAMSULOSIN HCL 0.4 MG CAP PO SCH (09:00)
[2021-08-30] MEDS: ASPIRIN 81 MG CHEWABLE TABLETS PO SCH (09:00)
[2021-08-30] MEDS: CARVEDILOL 6.25 MG TABLET (FP) PO SCH (09:00)
[2021-08-30] MEDS: APIXABAN 2.5 MG TABLET PO SCH (09:00)
[2021-08-30] MEDS: SACUBITRIL/VALSARTAN 49 MG-51 MG TABLET PO SCH (09:00)
[2021-08-30] MEDS: MULTIVITAMINS THER W-MINERALS COMBO TABLET (FP) PO SCH (09:00)
[2021-08-30] MEDS ORDERED: amLODIPine BESYLATE 10 MG TABLET (FP) PO SCH (10:00)
[2021-08-30 16:40] VITALS: BP 94/80; PULSE 55; TEMP 98.6
== END 2021-08-30 16:57 | disposition home or self-care (01) | DRG 178 ==
LOC: JER 15:11 → INTOOBSV 15:57 → JERBED 15:57 → OBSVTOIN 19:40 → J2W 08-27 02:17
PROVIDERS: ADMIT Hospitalist; ATTEND Nurse Practitioner Acute Care
PROC: XW033H6 Introduction of Other New Technology Monoclonal Antibody into Peripheral Vein, Percutaneous Approach, New Technology Group 6 (ICD-10-PCS; principal; 2021-08-26)
DX: U07.1 COVID-19 (principal); Z68.1 Body mass index [BMI] 19.9 or less, adult; I31.3 Pericardial effusion (noninflammatory); I50.22 Chronic systolic (congestive) heart failure; E03.9 Hypothyroidism, unspecified; I11.0 Hypertensive heart disease with heart failure; I25.10 Atherosclerotic heart disease of native coronary artery without angina pectoris; I10 Essential (primary) hypertension; E78.5 Hyperlipidemia, unspecified; I48.0 Paroxysmal atrial fibrillation; E11.9 Type 2 diabetes mellitus without complications; Z95.1 Presence of aortocoronary bypass graft; N40.0 Benign prostatic hyperplasia without lower urinary tract symptoms; D50.9 Iron deficiency anemia, unspecified; I08.0 Rheumatic disorders of both mitral and aortic valves; D64.9 Anemia, unspecified; R11.2 Nausea with vomiting, unspecified; R63.4 Abnormal weight loss; R62.7 Adult failure to thrive; E87.8 Other disorders of electrolyte and fluid balance, not elsewhere classified; D56.3 Thalassemia minor; Z86.73 Personal history of transient ischemic attack (TIA), and cerebral infarction without residual deficits
CPT/HCPCS: 36415; 71045-TC-FY; 74021-TC-FY; 80053; 81003; 82272; 82728; 82962; 83036; 83540; 83550; 83735; 83880; 84100; 84439; 84443; 84481; 84484; 85025; 85027; 85045; 85610; 85730; 86140; 86850; 86900; 86901; 87086; 87804; 93005; 93010; 93306-TC; 97116-GP; 97161-GP; 99285-25; C9803; G0378; M0247; Q0247; U0003; U0005

== ENCOUNTER 2021-09-09 14:37 | Inpatient (IN) | payer OTHER, MEDICARE ==
[2021-09-09 14:53] VITALS: BMI 17.6
[2021-09-09] MEDS ORDERED: SODIUM CHLORIDE 1,000 ML IV STA (15:12)
[2021-09-09 15:38] LABS: BASO % 0.4 % (0-2.0); HEMATOCRIT 20.9 % (35.4-49); LYMPH % 4.9 % (8-40); MCHC 31.2 g/dl (32.0-35.9); MONO % 4.8 % (3.8-10.2); NEUT % 89.9 % (42.8-82.8); PLATELET COUNT 315 10^3/uL (134-434); RBC 3.37 M/mm3 (4.00-5.60); RDW 14.8 % (11.9-15.9); WHITE BLOOD COUNT 12.7 K/mm3 (4.0-10.0)
[2021-09-09 15:42] LABS: MCH 19.3 pg (25.7-33.7)
[2021-09-09 15:44] LABS: HEMOGLOBIN 6.5 GM/dL (11.7-16.9)
[2021-09-09 16:01] LABS: ACTIVATED PTT 30.8 SECONDS (25.2-36.5); INR 2.01 (0.83-1.09); PROTHROMBIN TIME (PATIENT) 23.3 SEC (9.7-13.0)
[2021-09-09 16:03] LABS: CALCIUM 7.8 mg/dL (8.5-10.1)
[2021-09-09 16:04] LABS: BLOOD UREA NITROGEN 25.6 mg/dL (7-18); MAGNESIUM 1.6 mg/dL (1.8-2.4)
[2021-09-09 16:07] LABS: CREATININE 1.2 mg/dL (0.55-1.3); PHOSPHOROUS 2.9 mg/dL (2.5-4.9)
[2021-09-09 16:09] LABS: BILIRUBIN,TOTAL 0.6 mg/dL (0.2-1); TOT PROT 5.3 g/dl (6.4-8.2)
[2021-09-09 16:12] LABS: N-TERMINAL BNP 5767.7 pg/ml (5-450)
[2021-09-09 16:28] LABS: ALBUMIN 1.8 g/dl (3.4-5.0)
[2021-09-09] MEDS ORDERED: MAGNESIUM SULF 50% (8.12 MEQ/2 ML-1 GM VIAL) IVPB ONE (17:59)
[2021-09-09] MEDS ORDERED: MAGNESIUM 1GM/D5W - 1 GM/100 ML IVPB IVPB ONE (18:03)
[2021-09-09] MEDS ORDERED: METOCLOPRAMIDE HCL INJECTION 10 MG/2 ML VIAL IVPUSH ONE (18:29)
[2021-09-09] MEDS ORDERED: FUROSEMIDE 40 MG/4 ML INJECTABLE VIAL IVPUSH ONE (22:00)
[2021-09-09] MEDS: INSULIN SLIDING SCALE (NOVOLOG) 1 VIAL SQ SCH (22:22)
[2021-09-09] MEDS: ATORVASTATIN CA 40 MG TABLET (FP) PO SCH (22:23)
[2021-09-09] MEDS: CARVEDILOL 6.25 MG TABLET (FP) PO SCH (22:23)
[2021-09-09] MEDS: TAMSULOSIN HCL 0.4 MG CAP PO SCH (22:23)
[2021-09-09] MEDS: SACUBITRIL/VALSARTAN 49 MG-51 MG TABLET PO SCH (22:23)
[2021-09-10 01:44] LABS: PH,URINE 6.5 (5.0-8.0); URINE APPEARANCE CLEAR; URINE BILIRUBIN NEGATIVE (NEGATIVE); URINE COLOR YELLOW; URINE GLUCOSE (UA) NEGATIVE (NEGATIVE); URINE KETONE NEGATIVE (NEGATIVE); URINE LEUK ESTERASE NEGATIVE (NEGATIVE); URINE NITRITE NEGATIVE (NEGATIVE); URINE PROTEIN NEGATIVE (NEGATIVE); URINE UROBILINOGEN 0.2 mg/dL (0.2-1.0)
[2021-09-10] MEDS: INSULIN SLIDING SCALE (NOVOLOG) 1 VIAL SQ SCH ×4 (06:36→22:04)
[2021-09-10] MEDS: LEVOTHYROXINE NA 50 MCG TABLET (FP) PO SCH (06:36)
[2021-09-10] MEDS ORDERED: amLODIPine BESYLATE 10 MG TABLET (FP) PO SCH (10:00)
[2021-09-10] MEDS: TAMSULOSIN HCL 0.4 MG CAP PO SCH ×2 (10:42→22:03)
[2021-09-10] MEDS: AMINO ACIDS/PROTEIN HYDROLYS 30 ML LIQUID.PKT PO SCH ×2 (10:42→18:18)
[2021-09-10] MEDS: PANTOPRAZOLE 40 MG TABLET PO SCH (10:42)
[2021-09-10] MEDS: SACUBITRIL/VALSARTAN 49 MG-51 MG TABLET PO SCH ×2 (10:43→22:52)
[2021-09-10 10:48] LABS: HEMATOCRIT 25.5 % (35.4-49); HEMOGLOBIN 8.3 GM/dL (11.7-16.9); MCH 21.1 pg (25.7-33.7); MCHC 32.3 g/dl (32.0-35.9); MEAN CELL VOLUME 65.3 fl (80-96); MEAN PLT VOLUME 9.4 fl (7.5-11.1); PLATELET COUNT 317 10^3/uL (134-434); RBC 3.91 M/mm3 (4.00-5.60); RDW 17.4 % (11.9-15.9)
[2021-09-10 11:06] LABS: CALCIUM 8.2 mg/dL (8.5-10.1)
[2021-09-10 11:07] LABS: BLOOD UREA NITROGEN 23.1 mg/dL (7-18); MAGNESIUM 1.9 mg/dL (1.8-2.4)
[2021-09-10 11:10] LABS: PHOSPHOROUS 3.1 mg/dL (2.5-4.9)
[2021-09-10] MEDS: CARVEDILOL 6.25 MG TABLET (FP) PO SCH ×2 (12:11→22:03)
[2021-09-10] MEDS: MULTIVITAMINS (DAILY MVI) TABLET (FP) PO SCH (12:43)
[2021-09-10] MEDS: ATORVASTATIN CA 40 MG TABLET (FP) PO SCH (22:03)
[2021-09-11] MEDS: INSULIN SLIDING SCALE (NOVOLOG) 1 VIAL SQ SCH ×4 (05:59→22:07)
[2021-09-11] MEDS: LEVOTHYROXINE NA 50 MCG TABLET (FP) PO SCH (06:00)
[2021-09-11] MEDS: AMINO ACIDS/PROTEIN HYDROLYS 30 ML LIQUID.PKT PO SCH ×2 (08:04→16:44)
[2021-09-11 10:21] LABS: BASO % 0.3 % (0-2.0); EOS % 0.5 % (0-4.5); HEMATOCRIT 24.4 % (35.4-49); HEMOGLOBIN 7.9 GM/dL (11.7-16.9); MCH 21.1 pg (25.7-33.7); MCHC 32.4 g/dl (32.0-35.9); MEAN CELL VOLUME 65.1 fl (80-96); MEAN PLT VOLUME 8.6 fl (7.5-11.1); MONO % 7.3 % (3.8-10.2); NEUT % 82.9 % (42.8-82.8); PLATELET COUNT 325 10^3/uL (134-434); RBC 3.74 M/mm3 (4.00-5.60); RDW 16.7 % (11.9-15.9); WHITE BLOOD COUNT 8.2 K/mm3 (4.0-10.0)
[2021-09-11] MEDS: PANTOPRAZOLE 40 MG TABLET PO SCH (10:31)
[2021-09-11] MEDS: CARVEDILOL 6.25 MG TABLET (FP) PO SCH ×2 (10:31→22:12)
[2021-09-11] MEDS: TAMSULOSIN HCL 0.4 MG CAP PO SCH ×2 (10:31→22:07)
[2021-09-11] MEDS: MULTIVITAMINS (DAILY MVI) TABLET (FP) PO SCH (10:32)
[2021-09-11] MEDS: SACUBITRIL/VALSARTAN 49 MG-51 MG TABLET PO SCH ×2 (10:32→22:08)
[2021-09-11] MEDS: amLODIPine BESYLATE 10 MG TABLET (FP) PO SCH (10:34)
[2021-09-11 10:40] LABS: ALBUMIN 1.6 g/dl (3.4-5.0); BLOOD UREA NITROGEN 26.8 mg/dL (7-18); CALCIUM 7.7 mg/dL (8.5-10.1); MAGNESIUM 1.9 mg/dL (1.8-2.4)
[2021-09-11 10:43] LABS: CREATININE 1.1 mg/dL (0.55-1.3)
[2021-09-11 10:45] LABS: BILIRUBIN,TOTAL 0.7 mg/dL (0.2-1)
[2021-09-11] MEDS ORDERED: IRON SUCROSE INJECTION 100 MG in SODIUM CHLORIDE 95 ML IVPB ONE (11:48)
[2021-09-11] MEDS: ATORVASTATIN CA 40 MG TABLET (FP) PO SCH (22:07)
[2021-09-11] MEDS: APIXABAN 2.5 MG TABLET PO SCH (22:07)
[2021-09-12] MEDS: LEVOTHYROXINE NA 50 MCG TABLET (FP) PO SCH (06:50)
[2021-09-12] MEDS: INSULIN SLIDING SCALE (NOVOLOG) 1 VIAL SQ SCH ×4 (06:50→22:22)
[2021-09-12] MEDS: SACUBITRIL/VALSARTAN 49 MG-51 MG TABLET PO SCH ×2 (09:41→22:10)
[2021-09-12] MEDS: TAMSULOSIN HCL 0.4 MG CAP PO SCH ×2 (09:41→22:10)
[2021-09-12] MEDS: CARVEDILOL 6.25 MG TABLET (FP) PO SCH ×2 (09:41→22:11)
[2021-09-12] MEDS: APIXABAN 2.5 MG TABLET PO SCH ×2 (09:41→22:11)
[2021-09-12] MEDS: amLODIPine BESYLATE 10 MG TABLET (FP) PO SCH (09:41)
[2021-09-12] MEDS: PANTOPRAZOLE 40 MG TABLET PO SCH (09:41)
[2021-09-12] MEDS: MULTIVITAMINS (DAILY MVI) TABLET (FP) PO SCH (09:41)
[2021-09-12] MEDS: AMINO ACIDS/PROTEIN HYDROLYS 30 ML LIQUID.PKT PO SCH ×3 (09:42→16:54)
[2021-09-12 09:47] LABS: BASO % 0.9 % (0-2.0); EOS % 0.9 % (0-4.5); HEMATOCRIT 24.4 % (35.4-49); LYMPH % 13.4 % (8-40); MCH 21.2 pg (25.7-33.7); MCHC 32.8 g/dl (32.0-35.9); MEAN CELL VOLUME 64.8 fl (80-96); MEAN PLT VOLUME 8.9 fl (7.5-11.1); MONO % 8.5 % (3.8-10.2); NEUT % 76.3 % (42.8-82.8); PLATELET COUNT 323 10^3/uL (134-434); RBC 3.76 M/mm3 (4.00-5.60); RDW 16.6 % (11.9-15.9); WHITE BLOOD COUNT 7.1 K/mm3 (4.0-10.0)
[2021-09-12] MEDS ORDERED: IRON SUCROSE INJECTION 100 MG in SODIUM CHLORIDE 95 ML IVPB ONE (10:00)
[2021-09-12 10:05] LABS: CALCIUM 7.7 mg/dL (8.5-10.1)
[2021-09-12 10:06] LABS: ALBUMIN 1.6 g/dl (3.4-5.0); BLOOD UREA NITROGEN 29.9 mg/dL (7-18); MAGNESIUM 1.8 mg/dL (1.8-2.4)
[2021-09-12 10:09] LABS: CREATININE 1.1 mg/dL (0.55-1.3)
[2021-09-12 10:11] LABS: BILIRUBIN,TOTAL 0.5 mg/dL (0.2-1); TOT PROT 4.8 g/dl (6.4-8.2)
[2021-09-12] MEDS: ATORVASTATIN CA 40 MG TABLET (FP) PO SCH (22:11)
[2021-09-13] MEDS: LEVOTHYROXINE NA 50 MCG TABLET (FP) PO SCH (06:22)
[2021-09-13] MEDS: INSULIN SLIDING SCALE (NOVOLOG) 1 VIAL SQ SCH ×4 (06:22→22:03)
[2021-09-13] MEDS: TAMSULOSIN HCL 0.4 MG CAP PO SCH ×2 (10:06→22:02)
[2021-09-13] MEDS: MULTIVITAMINS (DAILY MVI) TABLET (FP) PO SCH (10:06)
[2021-09-13] MEDS: CARVEDILOL 6.25 MG TABLET (FP) PO SCH ×2 (10:06→22:02)
[2021-09-13] MEDS: PANTOPRAZOLE 40 MG TABLET PO SCH (10:07)
[2021-09-13] MEDS: amLODIPine BESYLATE 10 MG TABLET (FP) PO SCH (10:07)
[2021-09-13] MEDS: AMINO ACIDS/PROTEIN HYDROLYS 30 ML LIQUID.PKT PO SCH ×2 (10:07→17:43)
[2021-09-13] MEDS: SACUBITRIL/VALSARTAN 49 MG-51 MG TABLET PO SCH ×2 (10:07→22:02)
[2021-09-13] MEDS: APIXABAN 2.5 MG TABLET PO SCH ×2 (10:39→22:02)
[2021-09-13 11:23] LABS: BASO % 0.6 % (0-2.0); EOS % 0.5 % (0-4.5); HEMATOCRIT 27.2 % (35.4-49); HEMOGLOBIN 8.7 GM/dL (11.7-16.9); LYMPH % 10.8 % (8-40); MCH 20.9 pg (25.7-33.7); MEAN CELL VOLUME 65.4 fl (80-96); MEAN PLT VOLUME 8.8 fl (7.5-11.1); MONO % 6.1 % (3.8-10.2); PLATELET COUNT 379 10^3/uL (134-434); RBC 4.16 M/mm3 (4.00-5.60); RDW 16.7 % (11.9-15.9); WHITE BLOOD COUNT 6.5 K/mm3 (4.0-10.0)
[2021-09-13 11:45] LABS: ALBUMIN 1.8 g/dl (3.4-5.0); BLOOD UREA NITROGEN 27.7 mg/dL (7-18); CALCIUM 7.9 mg/dL (8.5-10.1)
[2021-09-13] MEDS: MAG HYDROX/AL HYDROX/SIMETH 30 ML UNIT-DOSE CUP PO PRN ×2 (11:45→17:45)
[2021-09-13 11:50] LABS: BILIRUBIN,TOTAL 0.5 mg/dL (0.2-1); TOT PROT 5.3 g/dl (6.4-8.2)
[2021-09-13 12:09] LABS: ANISOCYTOSIS 2+; MACROCYTOSIS 0; ROULEAU 1+
[2021-09-13] MEDS ORDERED: HEPARIN NA (PORCINE) 5,000 UNITS/ML 1ML VIAL IVPUSH PRN ×2 (16:05)
[2021-09-13] MEDS ORDERED: HEPARIN SOD,PORK IN 0.45% NACL 25,000 UNIT/500 ML INFUS.BAG IVPB SCH (16:15)
[2021-09-13] MEDS: ATORVASTATIN CA 40 MG TABLET (FP) PO SCH (22:02)
[2021-09-14] MEDS: LEVOTHYROXINE NA 50 MCG TABLET (FP) PO SCH (06:37)
[2021-09-14] MEDS: INSULIN SLIDING SCALE (NOVOLOG) 1 VIAL SQ SCH ×3 (06:37→17:31)
[2021-09-14 08:50] LABS: BASO % 0.7 % (0-2.0); EOS % 0.1 % (0-4.5); HEMATOCRIT 27.3 % (35.4-49); HEMOGLOBIN 8.8 GM/dL (11.7-16.9); LYMPH % 9.6 % (8-40); MCHC 32.3 g/dl (32.0-35.9); MEAN CELL VOLUME 64.9 fl (80-96); MEAN PLT VOLUME 8.8 fl (7.5-11.1); MONO % 5.8 % (3.8-10.2); NEUT % 83.8 % (42.8-82.8); PLATELET COUNT 390 10^3/uL (134-434); RDW 15.9 % (11.9-15.9); WHITE BLOOD COUNT 9.2 K/mm3 (4.0-10.0)
[2021-09-14 09:14] LABS: ALBUMIN 1.8 g/dl (3.4-5.0); BLOOD UREA NITROGEN 29.5 mg/dL (7-18); CALCIUM 8.1 mg/dL (8.5-10.1); MAGNESIUM 1.8 mg/dL (1.8-2.4)
[2021-09-14 09:18] LABS: BILIRUBIN,TOTAL 0.5 mg/dL (0.2-1)
[2021-09-14 09:22] LABS: TOT PROT 5.3 g/dl (6.4-8.2)
[2021-09-14] MEDS ORDERED: PANTOPRAZOLE 40 MG TABLET PO SCH (10:00)
[2021-09-14] MEDS: AMINO ACIDS/PROTEIN HYDROLYS 30 ML LIQUID.PKT PO SCH ×2 (10:29→17:57)
[2021-09-14] MEDS: CARVEDILOL 6.25 MG TABLET (FP) PO SCH (10:33)
[2021-09-14] MEDS: APIXABAN 2.5 MG TABLET PO SCH (10:34)
[2021-09-14] MEDS: amLODIPine BESYLATE 10 MG TABLET (FP) PO SCH (10:37)
[2021-09-14] MEDS: SACUBITRIL/VALSARTAN 49 MG-51 MG TABLET PO SCH (12:15)
[2021-09-14] MEDS: TAMSULOSIN HCL 0.4 MG CAP PO SCH (12:15)
[2021-09-14] MEDS: MULTIVITAMINS (DAILY MVI) TABLET (FP) PO SCH (12:18)
[2021-09-14] MEDS: MEGESTROL ACETATE 40 MG TABLET PO SCH (16:32)
[2021-09-14] MEDS ORDERED: ACETAMINOPHEN 1000 MG/100 ML BAG IVPB PRN (16:37)
[2021-09-15] MEDS: ATORVASTATIN CA 40 MG TABLET (FP) PO SCH ×2 (00:33→21:29)
[2021-09-15] MEDS: APIXABAN 2.5 MG TABLET PO SCH ×2 (00:33→10:06)
[2021-09-15] MEDS: CARVEDILOL 6.25 MG TABLET (FP) PO SCH ×3 (00:33→21:25)
[2021-09-15] MEDS: TAMSULOSIN HCL 0.4 MG CAP PO SCH ×3 (00:33→21:29)
[2021-09-15] MEDS: INSULIN SLIDING SCALE (NOVOLOG) 1 VIAL SQ SCH ×5 (00:33→21:33)
[2021-09-15] MEDS: SACUBITRIL/VALSARTAN 49 MG-51 MG TABLET PO SCH ×3 (02:02→21:25)
[2021-09-15] MEDS: LEVOTHYROXINE NA 50 MCG TABLET (FP) PO SCH (06:58)
[2021-09-15 09:02] LABS: HEMOGLOBIN 8.5 GM/dL (11.7-16.9); MCH 20.8 pg (25.7-33.7); MCHC 31.7 g/dl (32.0-35.9); MEAN CELL VOLUME 65.5 fl (80-96); MEAN PLT VOLUME 9.3 fl (7.5-11.1); PLATELET COUNT 377 10^3/uL (134-434); RBC 4.12 M/mm3 (4.00-5.60); RDW 15.9 % (11.9-15.9); WHITE BLOOD COUNT 13.2 K/mm3 (4.0-10.0)
[2021-09-15 09:24] LABS: ALBUMIN 1.8 g/dl (3.4-5.0); BLOOD UREA NITROGEN 41.9 mg/dL (7-18); CREATININE 1.3 mg/dL (0.55-1.3)
[2021-09-15 09:25] LABS: CALCIUM 8.2 mg/dL (8.5-10.1); MAGNESIUM 1.9 mg/dL (1.8-2.4)
[2021-09-15 09:26] LABS: BILIRUBIN,TOTAL 0.9 mg/dL (0.2-1); TOT PROT 5.2 g/dl (6.4-8.2)
[2021-09-15] MEDS ORDERED: PANTOPRAZOLE 20 MG TABLET PO SCH (10:00)
[2021-09-15] MEDS: MULTIVITAMINS (DAILY MVI) TABLET (FP) PO SCH (10:06)
[2021-09-15] MEDS: AMINO ACIDS/PROTEIN HYDROLYS 30 ML LIQUID.PKT PO SCH ×2 (10:06→17:37)
[2021-09-15] MEDS: MEGESTROL ACETATE 40 MG TABLET PO SCH (10:07)
[2021-09-15] MEDS: amLODIPine BESYLATE 10 MG TABLET (FP) PO SCH (10:07)
[2021-09-15] MEDS ORDERED: AMINO ACIDS 4.25%/D5W 1,000 ML IV SCH (10:15)
[2021-09-15 11:10] LABS: ANISOCYTOSIS 1+; MACROCYTOSIS 0
[2021-09-15 11:58] LABS: INR 2.35 (0.83-1.09); PROTHROMBIN TIME (PATIENT) 27.3 SEC (9.7-13.0)
[2021-09-15] MEDS ORDERED: FUROSEMIDE 40 MG/4 ML INJECTABLE VIAL IVPUSH ONE (16:00)
[2021-09-15] MEDS: ALBUMIN HUMAN 25% 12.5 GM/50 ML VIAL IV SCH ×2 (17:16→17:55)
[2021-09-15] MEDS: ENOXAPARIN NA (PORCINE) 30 MG/0.3 ML DISP.SYRIN SQ SCH (21:35)
[2021-09-15] MEDS ORDERED: METOPROLOL TARTRATE 5 MG/5 ML VIAL IVPUSH PRN (21:59)
[2021-09-16] MEDS: LEVOTHYROXINE NA 50 MCG TABLET (FP) PO SCH (06:05)
[2021-09-16] MEDS: INSULIN SLIDING SCALE (NOVOLOG) 1 VIAL SQ SCH ×4 (06:08→21:20)
[2021-09-16] MEDS: AMINO ACIDS/PROTEIN HYDROLYS 30 ML LIQUID.PKT PO SCH ×2 (08:31→16:30)
[2021-09-16 09:25] LABS: HEMATOCRIT 21.9 % (35.4-49); MCHC 32.1 g/dl (32.0-35.9); MEAN CELL VOLUME 65.2 fl (80-96); MEAN PLT VOLUME 8.8 fl (7.5-11.1); PLATELET COUNT 332 10^3/uL (134-434); RBC 3.36 M/mm3 (4.00-5.60); RDW 16.6 % (11.9-15.9); WHITE BLOOD COUNT 14.4 K/mm3 (4.0-10.0)
[2021-09-16 09:49] LABS: CALCIUM 8.3 mg/dL (8.5-10.1)
[2021-09-16 09:50] LABS: ALBUMIN 2.1 g/dl (3.4-5.0); BLOOD UREA NITROGEN 62.1 mg/dL (7-18); MAGNESIUM 1.9 mg/dL (1.8-2.4)
[2021-09-16 09:53] LABS: CREATININE 1.7 mg/dL (0.55-1.3)
[2021-09-16 09:54] LABS: BILIRUBIN,TOTAL 0.7 mg/dL (0.2-1); TOT PROT 5.2 g/dl (6.4-8.2)
[2021-09-16] MEDS: CARVEDILOL 6.25 MG TABLET (FP) PO SCH (10:08)
[2021-09-16] MEDS: MEGESTROL ACETATE 40 MG TABLET PO SCH (10:09)
[2021-09-16] MEDS: amLODIPine BESYLATE 10 MG TABLET (FP) PO SCH (10:09)
[2021-09-16] MEDS: MULTIVITAMINS (DAILY MVI) TABLET (FP) PO SCH (10:09)
[2021-09-16] MEDS: SACUBITRIL/VALSARTAN 49 MG-51 MG TABLET PO SCH (10:09)
[2021-09-16] MEDS: TAMSULOSIN HCL 0.4 MG CAP PO SCH (10:09)
[2021-09-16] MEDS ORDERED: METOPROLOL TARTRATE 5 MG/5 ML VIAL IVPB PRN (10:35)
[2021-09-16 10:57] LABS: ANISOCYTOSIS 1+; MACROCYTOSIS 0; OVALOCYTE 1+; PLATELET ESTIMATE NORMAL; TARGET CELLS 2+; TEAR DROP CELLS 1+
[2021-09-16] MEDS ORDERED: cefTRIAXone SODIUM 1 GM VIAL ONE (11:36)
[2021-09-16] MEDS ORDERED: DEXTROSE 5%-WATER - 50 ML IVPB ONE (11:37)
[2021-09-16] MEDS: CEFTRIAXONE 1 GM in DEXTROSE 5%-WATER - 50 ML IVPB SCH (11:40)
[2021-09-16] MEDS: PANTOPRAZOLE SODIUM 40 MG VIAL IVPUSH SCH (11:41)
[2021-09-16] MEDS: ENOXAPARIN NA (PORCINE) 30 MG/0.3 ML DISP.SYRIN SQ SCH ×2 (11:41→21:19)
[2021-09-16 12:46] LABS: INR 1.81 (0.83-1.09); PROTHROMBIN TIME (PATIENT) 20.9 SEC (9.7-13.0)
[2021-09-16] MEDS ORDERED: AMINO ACIDS 4.25%/D5W 1,000 ML IV SCH (14:00)
[2021-09-16] MEDS: AMINO ACIDS 4.25%/D5W 1,000 ML IV SCH (16:29)
[2021-09-16] MEDS ORDERED: ACETAMINOPHEN 1000 MG/100 ML BAG IVPB PRN (20:06)
[2021-09-16] MEDS ORDERED: FAT EMULSION/OLIVE/SOY (CLINOLIPID) 250 ML EMULSION IV SCH (22:00)
[2021-09-17] MEDS ORDERED: FAT EMULSION/OLIVE/SOY (CLINOLIPID) 500 ML EMULSION IV SCH (00:36)
[2021-09-17] MEDS: FAT EMULSION/OLIVE/SOY (CLINOLIPID) 500 ML EMULSION IV SCH ×2 (01:51→22:11)
[2021-09-17] MEDS: AMINO ACIDS 4.25%/D5W 1,000 ML IV SCH ×2 (01:52→16:01)
[2021-09-17] MEDS: INSULIN SLIDING SCALE (NOVOLOG) 1 VIAL SQ SCH ×4 (06:15→22:33)
[2021-09-17] MEDS: LEVOTHYROXINE NA 50 MCG TABLET (FP) PO SCH (06:16)
[2021-09-17] MEDS: AMINO ACIDS/PROTEIN HYDROLYS 30 ML LIQUID.PKT PO SCH (07:39)
[2021-09-17] MEDS ORDERED: DEXTROSE 5%-WATER - 50 ML IVPB ONE (08:40)
[2021-09-17] MEDS ORDERED: cefTRIAXone SODIUM 1 GM VIAL ONE (08:40)
[2021-09-17] MEDS: ENOXAPARIN NA (PORCINE) 30 MG/0.3 ML DISP.SYRIN SQ SCH ×2 (09:29→22:11)
[2021-09-17] MEDS: CEFTRIAXONE 1 GM in DEXTROSE 5%-WATER - 50 ML IVPB SCH (09:29)
[2021-09-17] MEDS: PANTOPRAZOLE SODIUM 40 MG VIAL IVPUSH SCH (09:29)
[2021-09-17] MEDS: MULTIVITAMINS (DAILY MVI) TABLET (FP) PO SCH (09:30)
[2021-09-17 10:02] LABS: BASO % 0.1 % (0-2.0); HEMATOCRIT 27.1 % (35.4-49); HEMOGLOBIN 9.2 GM/dL (11.7-16.9); LYMPH % 2.5 % (8-40); MCH 23.1 pg (25.7-33.7); MCHC 33.9 g/dl (32.0-35.9); MEAN CELL VOLUME 68.2 fl (80-96); MEAN PLT VOLUME 8.8 fl (7.5-11.1); MONO % 2.6 % (3.8-10.2); NEUT % 94.8 % (42.8-82.8); PLATELET COUNT 296 10^3/uL (134-434); RBC 3.96 M/mm3 (4.00-5.60); RDW 25.7 % (11.9-15.9); WHITE BLOOD COUNT 15.3 K/mm3 (4.0-10.0)
[2021-09-17 10:03] LABS: INR 1.8 (0.83-1.09); PROTHROMBIN TIME (PATIENT) 20.8 SEC (9.7-13.0)
[2021-09-17 10:23] LABS: ALBUMIN 1.7 g/dl (3.4-5.0); BLOOD UREA NITROGEN 71.2 mg/dL (7-18); CALCIUM 8.1 mg/dL (8.5-10.1); MAGNESIUM 1.9 mg/dL (1.8-2.4)
[2021-09-17 10:25] LABS: CREATININE 1.7 mg/dL (0.55-1.3)
[2021-09-17 10:28] LABS: BILIRUBIN,TOTAL 0.8 mg/dL (0.2-1); TOT PROT 4.9 g/dl (6.4-8.2)
[2021-09-17 11:30] LABS: ANISOCYTOSIS 1+; MACROCYTOSIS 0; OVALOCYTE 1+; PLATELET ESTIMATE NORMAL; TARGET CELLS 2+; TEAR DROP CELLS 1+
[2021-09-17] MEDS ORDERED: AMINO ACIDS 4.25%/D5W 1,000 ML IV SCH ×2 (15:40→15:52)
[2021-09-18] MEDS: INSULIN SLIDING SCALE (NOVOLOG) 1 VIAL SQ SCH ×4 (06:21→22:14)
[2021-09-18 08:38] LABS: HEMATOCRIT 29.7 % (35.4-49); HEMOGLOBIN 9.9 GM/dL (11.7-16.9); MCH 23.1 pg (25.7-33.7); MCHC 33.4 g/dl (32.0-35.9); PLATELET COUNT 305 10^3/uL (134-434); RBC 4.31 M/mm3 (4.00-5.60); RDW 25.5 % (11.9-15.9)
[2021-09-18 09:06] LABS: ALBUMIN 1.7 g/dl (3.4-5.0); BLOOD UREA NITROGEN 69.8 mg/dL (7-18); CALCIUM 7.8 mg/dL (8.5-10.1); MAGNESIUM 1.9 mg/dL (1.8-2.4)
[2021-09-18 09:09] LABS: CREATININE 1.3 mg/dL (0.55-1.3); PHOSPHOROUS 2.8 mg/dL (2.5-4.9)
[2021-09-18 09:10] LABS: BILIRUBIN,TOTAL 0.6 mg/dL (0.2-1); TOT PROT 4.9 g/dl (6.4-8.2)
[2021-09-18 09:52] LABS: INR 1.38 (0.83-1.09); PROTHROMBIN TIME (PATIENT) 15.9 SEC (9.7-13.0)
[2021-09-18] MEDS ORDERED: cefTRIAXone SODIUM 1 GM VIAL ONE (10:05)
[2021-09-18] MEDS ORDERED: DEXTROSE 5%-WATER - 50 ML IVPB ONE (10:05)
[2021-09-18 10:21] LABS: ANISOCYTOSIS 1+; MACROCYTOSIS 0
[2021-09-18] MEDS: FUROSEMIDE 40 MG/4 ML INJECTABLE VIAL IVPUSH SCH (10:24)
[2021-09-18] MEDS: PANTOPRAZOLE SODIUM 40 MG VIAL IVPUSH SCH (10:26)
[2021-09-18] MEDS: LEVOTHYROXINE SODIUM 100 MCG VIAL IVPUSH SCH (10:28)
[2021-09-18] MEDS: MULTIVITAMINS (DAILY MVI) TABLET (FP) PO SCH (10:29)
[2021-09-18] MEDS: CEFTRIAXONE 1 GM in DEXTROSE 5%-WATER - 50 ML IVPB SCH (10:30)
[2021-09-18] MEDS ORDERED: POTASSIUM CHLORIDE 20 MEQ in AMINO ACIDS 4.25%/D5W 1,000 ML IV SCH ×2 (10:30→18:00)
[2021-09-18] MEDS ORDERED: [UNRECOGNIZED DRUG - OTHER] IV SCH (15:16)
[2021-09-18] MEDS ORDERED: POTASSIUM CHLORIDE IV SCH (15:16)
[2021-09-18] MEDS ORDERED: MULTIVIT IV SCH (15:16)
[2021-09-18] MEDS ORDERED: MULTIVIT INJ. ADULT COMBO WITH VIT K 1 COMBO 10 ML VIAL IV SCH (18:00)
[2021-09-18] MEDS: FAT EMULSION/OLIVE/SOY/PHOSPHO 250 ML IV SCH (22:02)
[2021-09-19] MEDS: INSULIN SLIDING SCALE (NOVOLOG) 1 VIAL SQ SCH ×4 (06:05→21:19)
[2021-09-19] MEDS ORDERED: cefTRIAXone SODIUM 1 GM VIAL ONE (09:32)
[2021-09-19] MEDS ORDERED: DEXTROSE 5%-WATER - 50 ML IVPB ONE (09:32)
[2021-09-19] MEDS: PANTOPRAZOLE SODIUM 40 MG VIAL IVPUSH SCH (09:55)
[2021-09-19] MEDS: FUROSEMIDE 40 MG/4 ML INJECTABLE VIAL IVPUSH SCH (09:57)
[2021-09-19] MEDS: LEVOTHYROXINE SODIUM 100 MCG VIAL IVPUSH SCH (10:00)
[2021-09-19] MEDS ORDERED: MULTIVIT INJ. ADULT COMBO WITH VIT K 1 COMBO 10 ML VIAL IV SCH ×2 (10:00)
[2021-09-19] MEDS: CEFTRIAXONE 1 GM in DEXTROSE 5%-WATER - 50 ML IVPB SCH (10:07)
[2021-09-19] MEDS ORDERED: INSULIN SLIDING SCALE (NOVOLOG) 1 VIAL SQ ONE (11:13)
[2021-09-19 11:18] LABS: HEMATOCRIT 28.5 % (35.4-49); HEMOGLOBIN 9.1 GM/dL (11.7-16.9); MCH 22.1 pg (25.7-33.7); MCHC 31.9 g/dl (32.0-35.9); MEAN CELL VOLUME 69.2 fl (80-96); MEAN PLT VOLUME 9.6 fl (7.5-11.1); PLATELET COUNT 309 10^3/uL (134-434); RBC 4.12 M/mm3 (4.00-5.60); RDW 25.9 % (11.9-15.9)
[2021-09-19 11:25] LABS: INR 1.32 (0.83-1.09); PROTHROMBIN TIME (PATIENT) 15.2 SEC (9.7-13.0)
[2021-09-19 11:29] LABS: CALCIUM 7.8 mg/dL (8.5-10.1)
[2021-09-19 11:30] LABS: ALBUMIN 1.6 g/dl (3.4-5.0); BLOOD UREA NITROGEN 69.2 mg/dL (7-18)
[2021-09-19 11:33] LABS: CREATININE 1.3 mg/dL (0.55-1.3)
[2021-09-19 11:34] LABS: BILIRUBIN,TOTAL 0.6 mg/dL (0.2-1); TOT PROT 5.3 g/dl (6.4-8.2)
[2021-09-19 12:31] LABS: ANISOCYTOSIS 1+; MACROCYTOSIS 1+; OVALOCYTE 0; PLATELET ESTIMATE NORMAL
[2021-09-19] MEDS: KCL 10 MEQ IVPB 10 MEQ/100 ML INFUS.BAG IVPB SCH ×2 (13:04→16:28)
[2021-09-19] MEDS: SPIRONOLACTONE 25 MG TABLET PO ONE ×2 (15:03→17:15)
[2021-09-19] MEDS: POTASSIUM CHLORIDE 40 MEQ in AMINO ACIDS 4.25%/D5W 1,000 ML IV SCH (16:28)
[2021-09-19] MEDS: MULTIVIT INJ. ADULT COMBO WITH VIT K 1 COMBO 10 ML VIAL IV SCH (16:28)
[2021-09-19 17:18] LABS: BF WBC & OTHER NUCLEATED CELLS 4862 /mm3
[2021-09-19 18:49] LABS: BODY FLUID MONOCYTE 6 %
[2021-09-19] MEDS: FAT EMULSION/OLIVE/SOY/PHOSPHO 250 ML IV SCH (22:39)
[2021-09-20] MEDS: INSULIN SLIDING SCALE (NOVOLOG) 1 VIAL SQ SCH ×4 (06:02→21:55)
[2021-09-20 10:23] LABS: BASO % 0.3 % (0-2.0); EOS % 0.5 % (0-4.5); HEMATOCRIT 30.7 % (35.4-49); LYMPH % 5.3 % (8-40); MCH 22.4 pg (25.7-33.7); MCHC 32.4 g/dl (32.0-35.9); MEAN PLT VOLUME 9.6 fl (7.5-11.1); MONO % 5.4 % (3.8-10.2); NEUT % 88.5 % (42.8-82.8); PLATELET COUNT 321 10^3/uL (134-434); RBC 4.45 M/mm3 (4.00-5.60); RDW 26.6 % (11.9-15.9); WHITE BLOOD COUNT 10.4 K/mm3 (4.0-10.0)
[2021-09-20 10:28] LABS: INR 1.24 (0.83-1.09); PROTHROMBIN TIME (PATIENT) 14.3 SEC (9.7-13.0)
[2021-09-20] MEDS: CEFTRIAXONE 1 GM in DEXTROSE 5%-WATER - 50 ML IVPB SCH (10:45)
[2021-09-20 10:48] LABS: ALBUMIN 1.7 g/dl (3.4-5.0); BLOOD UREA NITROGEN 57.3 mg/dL (7-18); CALCIUM 7.9 mg/dL (8.5-10.1)
[2021-09-20 10:52] LABS: CREATININE 1.1 mg/dL (0.55-1.3)
[2021-09-20 10:53] LABS: BILIRUBIN,TOTAL 0.7 mg/dL (0.2-1); TOT PROT 5.4 g/dl (6.4-8.2)
[2021-09-20] MEDS ORDERED: cefTRIAXone SODIUM 1 GM VIAL ONE (11:35)
[2021-09-20] MEDS ORDERED: DEXTROSE 5%-WATER - 50 ML IVPB ONE (11:35)
[2021-09-20] MEDS: PANTOPRAZOLE SODIUM 40 MG VIAL IVPUSH SCH (11:46)
[2021-09-20] MEDS ORDERED: EPINEPHrine 1:10,000 (P-F SYR) 1 MG/10 ML DISP.SYRIN ONE (11:46)
[2021-09-20] MEDS: LEVOTHYROXINE SODIUM 100 MCG VIAL IVPUSH SCH (11:46)
[2021-09-20] MEDS: FUROSEMIDE 40 MG/4 ML INJECTABLE VIAL IVPUSH SCH (11:47)
[2021-09-20] MEDS: AMINO ACIDS/PROTEIN HYDROLYS 30 ML LIQUID.PKT PO SCH (16:35)
[2021-09-20] MEDS: POTASSIUM CHLORIDE 40 MEQ in AMINO ACIDS 4.25%/D5W 1,000 ML IV SCH (21:46)
[2021-09-20] MEDS: MULTIVIT INJ. ADULT COMBO WITH VIT K 1 COMBO 10 ML VIAL IV SCH (21:46)
[2021-09-20] MEDS: FAT EMULSION/OLIVE/SOY/PHOSPHO 250 ML IV SCH (21:47)
[2021-09-20] MEDS: ATORVASTATIN CA 40 MG TABLET (FP) PO SCH ×2 (21:47→23:48)
[2021-09-20] MEDS: CARVEDILOL 6.25 MG TABLET (FP) PO SCH ×2 (21:47→23:46)
[2021-09-20] MEDS: TAMSULOSIN HCL 0.4 MG CAP PO SCH ×2 (21:47→23:47)
[2021-09-20] MEDS: SACUBITRIL/VALSARTAN 49 MG-51 MG TABLET PO SCH ×2 (21:48→23:47)
[2021-09-21 05:29] VITALS: BP 123/72; PULSE 88; TEMP 98.1
[2021-09-21 11:07] LABS: SARS-CoV-2 NAA Not Detected (Not Detected)
[2021-09-21 18:07] LABS: BODY FLUID ALBUMIN 1.4 g/dL (Not Estab.)
[2021-09-28 11:10] LABS: Hgb F 0; Hgb S 0
== END 2021-09-21 05:39 | disposition short-term general hospital (02) | DRG 177 ==
LOC: JER 14:37 → JERBED 16:24 → J5S 20:04
PROVIDERS: ADMIT Internal Medicine; ATTEND Nurse Practitioner Family
PROC: 30233N1 Transfusion of Nonautologous Red Blood Cells into Peripheral Vein, Percutaneous Approach (ICD-10-PCS; 2021-09-09)
PROC: 0D9670Z Drainage of Stomach with Drainage Device, Via Natural or Artificial Opening (ICD-10-PCS; principal; 2021-09-15)
PROC: 0W9G3ZX Drainage of Peritoneal Cavity, Percutaneous Approach, Diagnostic (ICD-10-PCS; 2021-09-19)
PROC: 0DB98ZX Excision of Duodenum, Via Natural or Artificial Opening Endoscopic, Diagnostic (ICD-10-PCS; 2021-09-20)
PROC: 0DB68ZX Excision of Stomach, Via Natural or Artificial Opening Endoscopic, Diagnostic (ICD-10-PCS; 2021-09-20)
DX: U07.1 COVID-19 (principal); E43 Unspecified severe protein-calorie malnutrition; Z68.1 Body mass index [BMI] 19.9 or less, adult; R18.8 Other ascites; J90 Pleural effusion, not elsewhere classified; N17.9 Acute kidney failure, unspecified; I50.22 Chronic systolic (congestive) heart failure; K31.1 Adult hypertrophic pyloric stenosis; C25.9 Malignant neoplasm of pancreas, unspecified; E03.9 Hypothyroidism, unspecified; I11.0 Hypertensive heart disease with heart failure; I25.10 Atherosclerotic heart disease of native coronary artery without angina pectoris; I10 Essential (primary) hypertension; E78.5 Hyperlipidemia, unspecified; R60.9 Edema, unspecified; R62.7 Adult failure to thrive; D50.9 Iron deficiency anemia, unspecified; K31.89 Other diseases of stomach and duodenum; I34.0 Nonrheumatic mitral (valve) insufficiency; K76.9 Liver disease, unspecified; R10.9 Unspecified abdominal pain; E87.6 Hypokalemia; D56.9 Thalassemia, unspecified; R53.1 Weakness; E87.70 Fluid overload, unspecified; N40.0 Benign prostatic hyperplasia without lower urinary tract symptoms; E83.42 Hypomagnesemia; E11.9 Type 2 diabetes mellitus without complications; I48.0 Paroxysmal atrial fibrillation; Z95.1 Presence of aortocoronary bypass graft; Z95.5 Presence of coronary angioplasty implant and graft; Z86.73 Personal history of transient ischemic attack (TIA), and cerebral infarction without residual deficits
CPT/HCPCS: 36415; 36430; 71045-TC-FY; 74176-TC; 76700-TC; 76942-TC; 80048; 80053; 81003; 82042; 82105; 82150; 82272; 82378; 82550; 82728; 82945; 82962; 83010; 83021; 83540; 83550; 83615; 83735; 83880; 83986; 84100; 84153; 84157; 84443; 84478; 85025; 85027; 85045; 85610; 85660; 85730; 86301; 86708; 86803; 86850; 86900; 86901; 86922; 87040; 87070; 87075; 87086; 87102; 87106; 87116; 87205; 87206; 87210; 87340; 87517; 88108; 88305-TC; 93005; 93010; 94010; 97116-GP; 97162-GP; 99285-25; C9803; J1756; J8999; P9047; P9058; Q9967; U0003; U0005